=== PATIENT | female | born 1945 | race Caucasian/White ===

== ENCOUNTER 2022-05-15 17:21 | Emergency (ER) | payer OTHER, SELFPAY ==
[2022-05-15] VITALS (21 sets, daily range): BP systolic 143–203; BP diastolic 67–95; PULSE 50–82; RESP 15–22; TEMP 36.8; O2SAT 91–96; BMI 20.6
--- NOTE | 2022-05-15 17:58 | PC.NURSE ---
Addendum entered by Dagoberto Fragoso R.N. 05/15/22 18:02: BP 202/84, HR 74, 96% on RA. Original Note: 1744: Pt arrived by way of EMS who encouraged pt to come be seen due to high blood pressure. Pt reports being removed from her home by police and checked out by the firefighters. She denies SOB, chest pain, headache, N&V or changes in vision. 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 Pt reports, I'm very upset so I have memory issues, and reports she ran out of my lisinopril and Lipitor. Reports taking levothyroxine. Call light within reach.
--- NOTE | 2022-05-15 18:38 | DI.CT.S_ITS ---
PROCEDURE: CT HEAD/BRAIN WO CON INDICATIONS: altered mental status TECHNIQUE: Noncontrast 4.5 mm thick angled axial sections acquired from the foramen magnum to the vertex, with coronal and sagittal reformats. For radiation dose reduction, the following was used: automated exposure control, adjustment of mA and/or kV according to patient size. COMPARISON: None. FINDINGS: Image quality: Excellent. CSF spaces: Basal cisterns are patent. No extra-axial fluid collections. Ventricles are normal in size and shape. Brain: No midline shift. No intracranial masses or hemorrhage. Babcock-white matter interface is normal. Old lacunar infarct noted in the head of the caudate nucleus on the right. Moderate cerebral and cerebellar volume loss with multifocal white matter chronic ischemic change noted. Skull and face: Calvarium and visualized facial bones are intact, without suspicious lesions. Sinuses: Visualized sinuses and mastoids are clear. IMPRESSION: Atrophy and chronic ischemic change without acute hemorrhage or mass effect Approved by: Anmol Szymanski M.D. on 05/15/2022 at 18:04
--- NOTE | 2022-05-15 18:39 | ED.AMS ---
HPI - Altered Mental Status General Stated Complaint: Hypertension Time Seen by Provider: 05/15/22 18:16 History of Present Illness HPI narrative: Patient brought in by family for evaluation of altered mental status and high blood pressure. Patient does have history stroke 2 years ago. She is awake alert and oriented x3. She is cooperative. Not combative. Patient has been forgetful recently. Daughter was inquiring about GABRIELA paperwork. Course Orders Ordered: ED Orders 05/15/22 17:35 Consult to OPERATORS TEACHER - Floating Derrick Operator Stat 05/15/22 18:37 Complete Blood Count AUTO DIFF Stat Comprehensive Metabolic Panel Stat Ethanol (ETOH) Stat Thyroid Stimulating Hormone Stat Urinalysis and Microscopic Stat Urine Drug Screen, Rapid Stat EKG-12 Lead Stat 05/15/22 18:38 CT head/brain wo con Stat
--- NOTE | 2022-05-15 18:56 | ED.GENADULT ---
HPI - General Adult <Chalino Dobbs MD - Last Filed: 05/16/22 17:59> General Chief complaint: Hypertension Stated complaint: Hypertension Time Seen by Provider: 05/15/22 18:16 History of Present Illness HPI narrative: Patient brought here by family for complaints increased confusion and forgetfulness. Patient has history of stroke 2 years ago. She admits she has struggled with memory issues. She is awake alert oriented x3. Not combative. She is cooperative. Denies any pain. No headache. No chest pain no palpitations. No recent illness. No nausea vomiting diarrhea. No urinary complaints. Granddaughter is not here at this time. According to staff she was here briefly and did not want to wait after she inquired about having GABRIELA on patient. Social work has been aware of patient's arrival here. Does need medical clearance. Patient has been living with granddaughter. Patient has not been able to do activities of daily living. Clothing and eating and self-care. Review of Systems <Chalino Dobbs MD - Last Filed: 05/16/22 17:59> Review of Systems Narrative: GENERAL: Denies chills, fatigue, malaise, fever, sweats. HEENT: Denies sinus pain, ear pain, sore throat RESPIRATORY: Denies dyspnea, cough CARDIOVASCULAR: Denies chest pain, palpitations GASTROINTESTINAL: Denies nausea, vomiting, abdominal pain : Denies dysuria, frequency, hematuria MUSCULOSKELETAL: denies muscle or bony pain SKIN: Denies rash, skin lesions NEUROLOGIC: Denies weakness, numbness, negative for headache, negative for slurred speech or facial droop, positive for amnesia PSYCH: Negative for SI or HI. ROS Unobtainable: All systems reviewed & are unremarkable except as noted in HPI and below Patient History <Chalino Dobbs MD - Last Filed: 05/16/22 17:59> Social History Smoking Status: Current every day smoker Exam <Chalino Dobbs MD - Last Filed: 05/16/22 17:59> Narrative Exam Narrative: GENERAL: in no distress, not toxic not dyspneic HEAD: Normocephalic. EYES: Pupils equal round No scleral icterus. ENT: Mucous membranes moist. NECK: Trachea midline. CARDIOVASCULAR: Regular rate and rhythm without murmurs RESPIRATORY: Clear to auscultation. Breath sounds equal bilaterally. No wheezes, rales, or rhonchi. GASTROINTESTINAL: Abdomen soft, non-tender EXTREMITIES: No gross deformities. BACK: No flank tenderness. NEURO: AOx3. Clear speech no facial droop light touch intact to bilateral face hands with strong equal para machine operator. Negative pronator drift. SKIN: Warm and dry PSYCH: Not anxious, is cooperative, denies SI or HI. Patient is cooperative. Initial Vital Signs Initial Vital Signs: Vital Signs Pulse Rate 79 05/15/22 17:25 Blood Pressure 202/95 H 05/15/22 17:25 Pulse Oximetry 96 05/15/22 17:25 <Дмитрий Elam DO - Last Filed: 05/16/22 16:46> Initial Vital Signs Initial Vital Signs: Vital Signs Pulse Rate 79 05/15/22 17:25 Blood Pressure 202/95 H 05/15/22 17:25 Pulse Oximetry 96 05/15/22 17:25 Course <Chalino Dobbs MD - Last Filed: 05/16/22 17:59> Course Course Narrative: May 16, 2022 at 7:00 a.m., sign out to Dr. Elam, patient will need to see social work for evaluation and recommendation. Patient has been cooperative overnight. Has been medically cleared. Orders Ordered: ED Orders 05/16/22 08:41 COVID19 -Nasal RAPID/Pre-Proc Stat Vital Signs Vital signs: Vital Signs - 8 hr 05/16/22 10:00 05/16/22 10:30 05/16/22 11:00 Pulse Rate 48 L 49 L 56 L Respiratory Rate 18 21 21 Blood Pressure Pulse Oximetry 96 96 95 05/16/22 11:30 05/16/22 12:00 05/16/22 12:26 Pulse Rate 60 47 L 91 H Respiratory Rate 22 18 Blood Pressure Pulse Oximetry 95 94 05/16/22 12:39 Pulse Rate Respiratory Rate Blood Pressure 147/68 H Pulse Oximetry <Дмитрий Elam DO - Last Filed: 05/16/22 16:46> Orders Ordered: ED Orders 05/16/22 08:41 COVID19 -Nasal RAPID/Pre-Proc Stat Vital Signs Vital signs: Vital Signs - 8 hr 05/16/22 10:00 05/16/22 10:30 05/16/22 11:00 Pulse Rate 48 L 49 L 56 L Respiratory Rate 18 21 21 Blood Pressure Pulse Oximetry 96 96 95 05/16/22 11:30 05/16/22 12:00 05/16/22 12:26 Pulse Rate 60 47 L 91 H Respiratory Rate 22 18 Blood Pressure Pulse Oximetry 95 94 05/16/22 12:39 Pulse Rate Respiratory Rate Blood Pressure 147/68 H Pulse Oximetry Medical Decision Making <Chalino Dobbs MD - Last Filed: 05/16/22 17:59> Differential Diagnosis Differential Diagnosis: TIA/stroke/UTI/dementia/psychosis/dehydration Lab Data Result diagrams: 05/15/22 19:10 05/15/22 19:10 Labs: Lab Results 05/15/22 05/15/22 05/15/22 Range/Units 19:10 19:10 19:10 WBC 4.9 (4.5-11.0) X10^3/uL RBC 4.71 (4.0-5.2) X10^6/uL Hgb 14.0 (12.0-16.0) g/dL Hct 41.5 (36-46) % MCV 88.0 (80-100) fL MCH 29.6 (26-34) PG MCHC 33.7 (30-36) % RDW 15.3 H (11.6-14.8) % Plt Count 132 L (150-400) X10^3/uL Neut % (Auto) 45.9 L (50-75) % Lymph % (Auto) 44.8 H (25-40) % Barber % (Auto) 8.2 (3-14) % Eos % (Auto) 0.5 L (2-4) % Baso % (Auto) 0.6 (0-2) % Neut # (Auto) 2200 (6153-1867) /uL Lymph # (Auto) 2200 (1253-5192) /uL Barber # (Auto) 400 (0-900) /uL Eos # (Auto) 0 (0-450) /uL Baso # (Auto) 0 (0-100) /uL Sodium 139 (137-145) mmol/L Potassium 3.7 (3.4-5.1) mmol/L Chloride 104 (98-107) mmol/L Carbon Dioxide 30 (22-32) mmol/L BUN 17 (7-17) mg/dL Creatinine 0.73 (0.52-1.04) mg/dL Estimated GFR > 60 (>60) mL/min BUN/Creatinine Ratio 23.3 H (6-22) Glucose 96 (80-110) mg/dL Calcium 9.6 (8.4-10.2) mg/dL Total Bilirubin 0.4 (0.2-1.3) mg/dL AST 22 (14-36) IU/L ALT 12 (<35) IU/L Alkaline Phosphatase 68 (38-126) U/L Total Protein 7.8 (6.3-8.2) g/dL Albumin 4.7 (3.5-5.0) g/dL Globulin 3.1 (1.7-4.1) g/dL Albumin/Globulin Ratio 1.5 (1.0-2.8) TSH 9.89 H (0.47-4.68) uIU/mL Urine Color Urine Appearance Urine pH (4.5-8.0) Ur Specific [place] (1.000-1.035) Urine Protein (Negative) Urine Glucose (UA) (Negative) g/dL Urine Ketones (NEGATIVE) Urine Occult Blood (Negative) Urine Nitrate (Negative) Urine Bilirubin (NEGATIVE) Urine Urobilinogen (0.2) E.U./dL Ur Leukocyte Esterase (NEGATIVE) Urine RBC (0-5/HPF) Urine WBC (0-5/HPF) Ur Squamous Epith Cells (0-5/HPF) Urine Bacteria (None) Ur Culture Indicated? U Opiates 300ng/mL cut (Negative) Ur Oxycodone Screen (Negative) Urine Methadone Screen (Negative) Ur Barbiturates Screen (Negative) U Tricyclic Antidepress (Negative) Ur Phencyclidine Scrn (Negative) Ur Amphetamines Screen (Negative) U Methamphetamines Scrn (Negative) Ur MDMA Scrn (Ecstasy) (Negative) U Benzodiazepines Scrn (Negative) Urine Cocaine Screen (Negative) U Marijuana (THC) Screen (Negative) Ethyl Alcohol < 10 ( - 10) mg/dL SARS-CoV-2 (PCR) (Negative) 05/15/22 05/15/22 05/16/22 Range/Units 19:40 19:40 08:41 WBC (4.5-11.0) X10^3/uL RBC (4.0-5.2) X10^6/uL Hgb (12.0-16.0) g/dL Hct (36-46) % MCV (80-100) fL MCH (26-34) PG MCHC (30-36) % RDW (11.6-14.8) % Plt Count (150-400) X10^3/uL Neut % (Auto) (50-75) % Lymph % (Auto) (25-40) % Barber % (Auto) (3-14) % Eos % (Auto) (2-4) % Baso % (Auto) (0-2) % Neut # (Auto) (8475-9099) /uL Lymph # (Auto) (4183-2549) /uL Barber # (Auto) (0-900) /uL Eos # (Auto) (0-450) /uL Baso # (Auto) (0-100) /uL Sodium (137-145) mmol/L Potassium (3.4-5.1) mmol/L Chloride (98-107) mmol/L Carbon Dioxide (22-32) mmol/L BUN (7-17) mg/dL Creatinine (0.52-1.04) mg/dL Estimated GFR (>60) mL/min BUN/Creatinine Ratio (6-22) Glucose (80-110) mg/dL Calcium (8.4-10.2) mg/dL Total Bilirubin (0.2-1.3) mg/dL AST (14-36) IU/L ALT (<35) IU/L Alkaline Phosphatase (38-126) U/L Total Protein (6.3-8.2) g/dL Albumin (3.5-5.0) g/dL Globulin (1.7-4.1) g/dL Albumin/Globulin Ratio (1.0-2.8) TSH (0.47-4.68) uIU/mL Urine Color Yellow Urine Appearance Clear Urine pH 6.5 (4.5-8.0) Ur Specific [place] <=1.005 (1.000-1.035) Urine Protein Negative (Negative) Urine Glucose (UA) Negative (Negative) g/dL Urine Ketones Negative (NEGATIVE) Urine Occult Blood Trace-lysed (Negative) Urine Nitrate Negative (Negative) Urine Bilirubin Negative (NEGATIVE) Urine Urobilinogen 0.2 (0.2) E.U./dL Ur Leukocyte Esterase Negative (NEGATIVE) Urine RBC 0-1/hpf (0-5/HPF) Urine WBC 0-1/hpf (0-5/HPF) Ur Squamous Epith Cells 0-1 /hpf (0-5/HPF) Urine Bacteria None seen (None) Ur Culture Indicated? Cult not indicated U Opiates 300ng/mL cut Negative (Negative) Ur Oxycodone Screen Negative (Negative) Urine Methadone Screen Negative (Negative) Ur Barbiturates Screen Negative (Negative) U Tricyclic Antidepress Negative (Negative) Ur Phencyclidine Scrn Negative (Negative) Ur Amphetamines Screen Negative (Negative) U Methamphetamines Scrn Negative (Negative) Ur MDMA Scrn (Ecstasy) Negative (Negative) U Benzodiazepines Scrn Negative (Negative) Urine Cocaine Screen Negative (Negative) U Marijuana (THC) Screen Negative (Negative) Ethyl Alcohol ( - 10) mg/dL SARS-CoV-2 (PCR) Negative (Negative) Imaging Data CT scan - head: Radiologist's Impression: [address] [address] [address] Scan Report Signed Patient: Rin Mae MR#: [id number] : 1945 Acct:[id number] Age/Sex: 76 / F Date of Service: 05/15/22 Loc: ED Accession Number: [id number] ?? Procedure: CT head/brain wo con Ordering Provider: Chalino Dobbs MD PROCEDURE:? CT HEAD/BRAIN WO CON ? INDICATIONS:? altered mental status ? TECHNIQUE:? Noncontrast 4.5 mm thick angled axial sections acquired from the foramen magnum to the vertex, with coronal and sagittal reformats.? For radiation dose reduction, the following was used:? automated exposure control, adjustment of mA and/or kV according to patient size.? ? COMPARISON:? None. ? FINDINGS:? Image quality:? Excellent.? ? CSF spaces:? Basal cisterns are patent.? No extra-axial fluid collections.? Ventricles are normal in size and shape.? ? Brain:? No midline shift.? No intracranial masses or hemorrhage.? Babcock-white matter interface is normal.? Old lacunar infarct noted in the head of the caudate nucleus on the right.? Moderate cerebral and cerebellar volume loss with multifocal white matter chronic ischemic change noted. ? Skull and face:? Calvarium and visualized facial bones are intact, without suspicious lesions.? ? Sinuses:? Visualized sinuses and mastoids are clear.? ? IMPRESSION:? ? Atrophy and chronic ischemic change without acute hemorrhage or mass effect ? ? ? Approved by: Anmol Szymanski M.D. on 05/15/2022 at 18:04? ECG Data Interpretation: Sinus bradycardia rate [address] elevation or depression <Дмитрий Elam, DO - Last Filed: 05/16/22 16:46> Lab Data Labs: Lab Results 05/15/22 05/15/22 05/15/22 Range/Units 19:10 19:10 19:10 WBC 4.9 (4.5-11.0) X10^3/uL RBC 4.71 (4.0-5.2) X10^6/uL Hgb 14.0 (12.0-16.0) g/dL Hct 41.5 (36-46) % MCV 88.0 (80-100) fL MCH 29.6 (26-34) PG MCHC 33.7 (30-36) % RDW 15.3 H (11.6-14.8) % Plt Count 132 L (150-400) X10^3/uL Neut % (Auto) 45.9 L (50-75) % Lymph % (Auto) 44.8 H (25-40) % Barber % (Auto) 8.2 (3-14) % Eos % (Auto) 0.5 L (2-4) % Baso % (Auto) 0.6 (0-2) % Neut # (Auto) 2200 (8007-0555) /uL Lymph # (Auto) 2200 (6536-8042) /uL Barber # (Auto) 400 (0-900) /uL Eos # (Auto) 0 (0-450) /uL Baso # (Auto) 0 (0-100) /uL Sodium 139 (137-145) mmol/L Potassium 3.7 (3.4-5.1) mmol/L Chloride 104 (98-107) mmol/L Carbon Dioxide 30 (22-32) mmol/L BUN 17 (7-17) mg/dL Creatinine 0.73 (0.52-1.04) mg/dL Estimated GFR > 60 (>60) mL/min BUN/Creatinine Ratio 23.3 H (6-22) Glucose 96 (80-110) mg/dL Calcium 9.6 (8.4-10.2) mg/dL Total Bilirubin 0.4 (0.2-1.3) mg/dL AST 22 (14-36) IU/L ALT 12 (<35) IU/L Alkaline Phosphatase 68 (38-126) U/L Total Protein 7.8 (6.3-8.2) g/dL Albumin 4.7 (3.5-5.0) g/dL Globulin 3.1 (1.7-4.1) g/dL Albumin/Globulin Ratio 1.5 (1.0-2.8) TSH 9.89 H (0.47-4.68) uIU/mL Urine Color Urine Appearance Urine pH (4.5-8.0) Ur Specific [place] (1.000-1.035) Urine Protein (Negative) Urine Glucose (UA) (Negative) g/dL Urine Ketones (NEGATIVE) Urine Occult Blood (Negative) Urine Nitrate (Negative) Urine Bilirubin (NEGATIVE) Urine Urobilinogen (0.2) E.U./dL Ur Leukocyte Esterase (NEGATIVE) Urine RBC (0-5/HPF) Urine WBC (0-5/HPF) Ur Squamous Epith Cells (0-5/HPF) Urine Bacteria (None) Ur Culture Indicated? U Opiates 300ng/mL cut (Negative) Ur Oxycodone Screen (Negative) Urine Methadone Screen (Negative) Ur Barbiturates Screen (Negative) U Tricyclic Antidepress (Negative) Ur Phencyclidine Scrn (Negative) Ur Amphetamines Screen (Negative) U Methamphetamines Scrn (Negative) Ur MDMA Scrn (Ecstasy) (Negative) U Benzodiazepines Scrn (Negative) Urine Cocaine Screen (Negative) U Marijuana (THC) Screen (Negative) Ethyl Alcohol < 10 ( - 10) mg/dL SARS-CoV-2 (PCR) (Negative) 05/15/22 05/15/22 05/16/22 Range/Units 19:40 19:40 08:41 WBC (4.5-11.0) X10^3/uL RBC (4.0-5.2) X10^6/uL Hgb (12.0-16.0) g/dL Hct (36-46) % MCV (80-100) fL MCH (26-34) PG MCHC (30-36) % RDW (11.6-14.8) % Plt Count (150-400) X10^3/uL Neut % (Auto) (50-75) % Lymph % (Auto) (25-40) % Barber % (Auto) (3-14) % Eos % (Auto) (2-4) % Baso % (Auto) (0-2) % Neut # (Auto) (7761-5248) /uL Lymph # (Auto) (3357-7184) /uL Barber # (Auto) (0-900) /uL Eos # (Auto) (0-450) /uL Baso # (Auto) (0-100) /uL Sodium (137-145) mmol/L Potassium (3.4-5.1) mmol/L Chloride (98-107) mmol/L Carbon Dioxide (22-32) mmol/L BUN (7-17) mg/dL Creatinine (0.52-1.04) mg/dL Estimated GFR (>60) mL/min BUN/Creatinine Ratio (6-22) Glucose (80-110) mg/dL Calcium (8.4-10.2) mg/dL Total Bilirubin (0.2-1.3) mg/dL AST (14-36) IU/L ALT (<35) IU/L Alkaline Phosphatase (38-126) U/L Total Protein (6.3-8.2) g/dL Albumin (3.5-5.0) g/dL Globulin (1.7-4.1) g/dL Albumin/Globulin Ratio (1.0-2.8) TSH (0.47-4.68) uIU/mL Urine Color Yellow Urine Appearance Clear Urine pH 6.5 (4.5-8.0) Ur Specific [place] <=1.005 (1.000-1.035) Urine Protein Negative (Negative) Urine Glucose (UA) Negative (Negative) g/dL Urine Ketones Negative (NEGATIVE) Urine Occult Blood Trace-lysed (Negative) Urine Nitrate Negative (Negative) Urine Bilirubin Negative (NEGATIVE) Urine Urobilinogen 0.2 (0.2) E.U./dL Ur Leukocyte Esterase Negative (NEGATIVE) Urine RBC 0-1/hpf (0-5/HPF) Urine WBC 0-1/hpf (0-5/HPF) Ur Squamous Epith Cells 0-1 /hpf (0-5/HPF) Urine Bacteria None seen (None) Ur Culture Indicated? Cult not indicated U Opiates 300ng/mL cut Negative (Negative) Ur Oxycodone Screen Negative (Negative) Urine Methadone Screen Negative (Negative) Ur Barbiturates Screen Negative (Negative) U Tricyclic Antidepress Negative (Negative) Ur Phencyclidine Scrn Negative (Negative) Ur Amphetamines Screen Negative (Negative) U Methamphetamines Scrn Negative (Negative) Ur MDMA Scrn (Ecstasy) Negative (Negative) U Benzodiazepines Scrn Negative (Negative) Urine Cocaine Screen Negative (Negative) U Marijuana (THC) Screen Negative (Negative) Ethyl Alcohol ( - 10) mg/dL SARS-CoV-2 (PCR) Negative (Negative) MDM Narrative Medical decision making narrative: Dr elam: Received turnover. Reviewed patient's history and physical labs performed to this point. Patient has been stable and calm this morning. Has been seen by social work. Patient did become somewhat agitated. She stated that she wanted to go out and smoke however informed her that she would not be able to do this. We did offer her a nicotine patch but she declined. She was alert and oriented. She did seem to have some circular thoughts about what has happened over the past 24 hours. She thinks that what happened last evening with her family was something that was ?planned ?patient does not meet admission for involuntary commitment. She is not gravely disabled. Is not suicidal. Not homicidal. Patient stated that she was going to take a taxi to local hotel in stay there. She stated that she did have money for this. She was provided information for hotels in the area. She stated that she would like to leave. There is no reason to keep her here against her will. She was given return precautions. Discharge Plan Departure Patient Disposition: Home Clinical Impression: Hypertension Instructions: DI for High Blood Pressure Activity Restrictions/Additional Instructions: I do recommend you use the resources that you were given to obtain a hotel for this evening. You can return to the emergency department for any new or worsening symptoms. Continue to take all of your medications as directed. Visit Report Forms: Patient Portal/API
[2022-05-15 19:41] LABS: Add Manual Diff / Slide Review NO; Basophils Absolute Auto 0 /uL (0-100); Basophils Percent Auto 0.6 % (0-2); Eosinophils Absolute Auto 0 /uL (0-450); Eosinophils Percent Auto 0.5 % (2-4); Hematocrit 41.5 % (36-46); Lymphocytes Absolute Auto 2200 /uL (1100-4500); Lymphocytes Percent Auto 44.8 % (25-40); Mean Corpuscular HGB Conc 33.7 % (30-36); Mean Corpuscular Hemoglobin 29.6 PG (26-34); Monocytes Absolute Auto 400 /uL (0-900); Monocytes Percent Auto 8.2 % (3-14); Neutrophils Absolute Auto 2200 /uL (1500-7000); Neutrophils Percent Auto 45.9 % (50-75); Platelet Count 132 X10^3/uL (150-400); Red Blood Cell Count 4.71 X10^6/uL (4.0-5.2); Red Cell Distribution Width 15.3 % (11.6-14.8); White Blood Cell Count 4.9 X10^3/uL (4.5-11.0)
[2022-05-15 19:44] LABS: Alanine Aminotransferase 12 IU/L (<35); Albumin 4.7 g/dL (3.5-5.0); Albumin Globulin Ratio 1.5 (1.0-2.8); Alkaline Phosphatase 68 U/L (38-126); Aspartate Aminotransferase 22 IU/L (14-36); BUN Creatinine Ratio 23.3 (6-22); Bilirubin Total 0.4 mg/dL (0.2-1.3); Blood Urea Nitrogen 17 mg/dL (7-17); Calcium 9.6 mg/dL (8.4-10.2); Carbon Dioxide 30 mmol/L (22-32); Chloride 104 mmol/L (98-107); Estimated Glomerular Filt Rate > 60 mL/min (>60); Ethanol (ETOH) < 10 mg/dL; Globulin 3.1 g/dL (1.7-4.1); Glucose 96 mg/dL (80-110); HEMOLYSIS < 15 (0-50); Potassium 3.7 mmol/L (3.4-5.1); Sodium 139 mmol/L (137-145); Total Protein 7.8 g/dL (6.3-8.2)
[2022-05-15 20:15] LABS: Thyroid Stimulating Hormone 9.89 uIU/mL (0.47-4.68)
[2022-05-15 20:52] LABS: Appearance Urine UA CLEAR; Bilirubin Urine UA NEGATIVE (NEGATIVE); Color Urine UA YELLOW; Glucose Urine UA NEGATIVE (Negative); Ketones Urine UA NEGATIVE (NEGATIVE); Leukocyte Esterase Urine UA NEGATIVE (NEGATIVE); Nitrite Urine UA NEGATIVE (Negative); Occult Blood Urine UA TRACE-LYSED (Negative); Protein Urine UA NEGATIVE (Negative); Specific Gravity Urine UA <=1.005 (1.000-1.035); Urobilinogen Urine UA 0.2 E.U./dL (0.2)
[2022-05-15 20:58] LABS: UR Morphine/Opiate cutoff 300 Negative (Negative); Ur Creatinine Normal (Normal); Ur Specific Gravity Normal (Normal); Urine Amphetamines Negative (Negative); Urine Barbiturates Negative (Negative); Urine Benzodiazepines Negative (Negative); Urine Cocaine Negative (Negative); Urine MDMA Negative (Negative); Urine Methadone Negative (Negative); Urine Methamphetamines Negative (Negative); Urine Oxycodone Negative (Negative); Urine Phencyclidine Negative (Negative); Urine Tetrahydrocannabinol Negative (Negative); Urine Tricyclic Antidepressant Negative (Negative); Urine pH Normal (Normal)
[2022-05-15 21:00] LABS: pH Urine UA 6.5 (4.5-8.0)
[2022-05-15 21:13] LABS: Bacteria Urine None Seen; Culture Indicated Urine Cult Not Indicated; RBC Urine 0-1/HPF (0-5/HPF); Squamous Epithelial Cell Urine 0-1 /HPF (0-5/HPF); WBC Urine 0-1/HPF (0-5/HPF)
[2022-05-16] VITALS (31 sets, daily range): BP systolic 139–169; BP diastolic 64–91; PULSE 47–91; RESP 18–45; O2SAT 94–99
[2022-05-16 09:00] LABS: COVID19 -Nasal RAPID Negative (Negative)
--- NOTE | 2022-05-16 14:20 | CM.SWNOTE ---
Addendum entered by Cinthya Ruiz 05/16/22 17:42: SORTER PACKER receives return call from granddaughter Marilyn (Ph. # [phone]). Marilyn reports that patient has gotten violent with family and needs reminders to eat and shower. Marilyn states need for DCR and GABRIELA. SORTER PACKER explains tat patient was deemed medically clear for d/c and not appropriate for DCR assessment, and that patient did not want to be present in ED. Marilyn states that she will not pickling machine operator patient and I cannot be responsible for her. Marilyn states that no family members can help her. When asked about PCP appts or snf living situations, Marilyn states she will not cooperate she is delusional. Marilyn states that patient confuses family members and begged to leave [place] and now is begging to leave [facility]. It is reported that no one is the assigned DPOA. Marilyn provides phone numbers for patient's daughter Cheryl (Ph. # [phone]) and son Emiliano (ph. # [phone]) SORTER PACKER attempts to secure [employer] [facility] but [facility]. Registration staff call [employer] and it is reported that they will pickling machine operator patient and bring her to hotel. PATEL Josue Addendum entered by Cinthya Ruiz 05/16/22 15:24: SORTER PACKER Note New APS report intake number for new allegations: Online Report Confirmation Number: [id number] Original Note: SORTER PACKER Note Patient is 76 y/o female who presented to ED last evening via EMS after [employer] arrived at where she was staying. Per triage note patient was hypertensive and in the process of being evicted. Patient presents A/O to self and person. Patient states this is [place] and then when asked to elaborate, patient states she refers to [place] as the [facility]. Patient endorses she is from [place] and was living with her grandson Mario until he sold the house she was living in. Patient states that she was staying with a family member the past few days and she became upset when she say them putting her belongings in boxes. Patient endorses that she does not want this family member (Marilyn) to be contacted at all. Patient denies HI, SI, and MH dx. Patient endorses hx of strokes and endorses short term memory issues. Patient endorses her independence with ADLs. SORTER PACKER encourages patient to identify safe plan of d/c since she reports she wants to leave the ED but does not want to return the Marilyn's home. SORTER PACKER submits APS intake due to concern for patient's living situation:Online Report Confirmation Number: [id number] Patient was medically cleared and deemed safe for discharge. Per registration staff, patient is trying to arrange a taxi to [place]. SORTER PACKER and charge machine operator look at patient's phone and gather patient's family member phone numbers. SORTER PACKER calls patient's family member Marilyn Mckeon (Ph. # [phone]) and leaves requesting return call. SORTER PACKER calls patient's grandson Mario (Ph. # [phone]) Mario states that he resides in [place] and he has no plans to pickling machine operator patient nor anyone in his family. He states that she is hard to deal with has different moods throughout the day and that this is out of my hands. He states that she put herself in this situation. SORTER PACKER discusses ALFs, AFMs, hotels or other family members as options and patient denies that any of those will work. SORTER PACKER discusses concern for abandonment. SORTER PACKER states that SORTER PACKER will attempt to get her a hotel voucher but to please tell family members that she is the ED lobby and she is in need of a ride. SORTER PACKER calls [facility] and leaves requesting assistance for a hotel voucher. Plan: continue to coordinate with family to pickling machine operator patient, SORTER PACKER to submit new APS report with new information and continue to inquire if patient can receive hotel voucher. PATEL Josue
== END 2022-05-16 14:13 | disposition home or self-care (01) ==
PROVIDERS: Emergency Medicine; Emergency Provider Emergency Medicine
DX: I10 Essential (primary) hypertension (principal); R41.82 Altered mental status, unspecified; Z20.822 Contact with and (suspected) exposure to COVID-19
CPT/HCPCS: 36415; 70450; 80053; 80305; 80320; 81001; 84443; 85025; 87635; 93005; 99283; 99284; C9803